=== PATIENT | male | born 1990 | race Native Hawaiian/Other Pacific Islander ===

== ENCOUNTER 2017-06-23 00:59 | Emergency (ER) | payer OTHER ==
[~2017-06-23] VITALS: Ht 177.8 cm; Wt 100.0 kg
[2017-06-23 01:01] VITALS: BP 130/79; PULSE 75; RESP 16; TEMP 98.4; O2SAT 96
[2017-06-23] MEDS ORDERED: PRED-503 PO ×2 (01:24→01:54)
[2017-06-23] MEDS ORDERED: ALLE12TA2 PO ×2 (01:24→01:54)
[2017-06-23] MEDS ORDERED: ALBU6.7H INH ×2 (01:24→01:54)
--- NOTE | 2017-06-23 01:29 | PD ---
HPI Chief Complaint: Allergic/Adverse Reaction Time Seen by Provider: 01:25 Travel History International Travel<30 days: No Contact w/Intl Traveler<30days: No Traveled to known affect area: No History of Present Illness HPI 26-year-old male presents emergency Department with complaints of runny nose, sore throat, coughing, sneezing, Gen. malaise. He states that he is having this on and off now for weeks to months. It has been worse this past week after playing with a cat. He also states that he has difficulty breathing at night and sleeping. He has had videotapes of him stopping breathing and snoring loudly. The patient was told the past that he needs a sleep study. He states that he does not like doctors and has not had this done. Patient denies any fever or chills. No ear pain, chest pain, nausea, vomiting, abdominal pain or urinary symptoms. PFSH Past Medical History Narrative Medical Seasonal allergies, Asthma Tetanus Vaccination: < 5 Years Past Surgical History Surgical History: No Previous Surgery Social History Alcohol Use: No Tobacco Use: No Allergies-Medications (Allergen,Severity, Reaction): Coded Allergies: No Known Allergies (Unverified , 06/23/17) Reported Meds & Prescriptions Reported Meds & Active Scripts Active Kristal-D 12 Hour Allergy (Fexofenadine-Pseudoephedrine ER 12 HR) 60-120 Mg Ellen 1 Tab PO BID Proventil Hfa 6.7 GM Inh (Albuterol Sulfate) 90 Mcg/Act Aer 2 Puff INH Q6H PRN Deltasone (Prednisone) 20 Mg Tab 20 Mg PO TID Review of Systems Except as stated in HPI: all other systems reviewed are Neg Physical Exam Narrative GENERAL: Well-developed, well-nourished in no acute distress. Nontoxic appearing. HEAD: Normocephalic, atraumatic. EYES: Pupils equal round and reactive. Extraocular motions intact. No scleral icterus. No injection or drainage. ENT: TMs clear without erythema. The external auditory canals clear. Nose: clear discharge with slight edema . Posterior pharynx is pink and moist. No tonsillar edema or exudate. Uvula midline. Airway patent. NECK: Trachea midline.Supple, nontender, moves head freely. No central bony tenderness or spasm. CARDIOVASCULAR: Regular rate and rhythm without murmurs, gallops, or rubs. RESPIRATORY: Few expiratory wheezes. No Rales or rhonchi. GASTROINTESTINAL: Abdomen soft, non-tender, nondistended. No hepato-splenomegaly , or palpable masses. No guarding. EXTREMITIES: No clubbing, cyanosis, or edema. No joint tenderness, effusion, or edema noted. BACK: Nontender without deformity or crepitance. No flank tenderness. Data Data Last Documented VS Vital Signs Date Time Temp Pulse Resp B/P Pulse Ox O2 Delivery O2 Flow Rate FiO2 06/23/17 01:01 98.4 75 16 130/79 96 Room Air Orders Prednisone (Deltasone) (06/23/17 01:30) Diphenhydramine (Benadryl) (06/23/17 01:30) MDM Medical Decision Making Medical Screen Exam Complete: Yes Emergency Medical Condition: Yes Medical Record Reviewed: Yes Differential Diagnosis MDM: High Differential diagnoses: Pneumonia, bronchitis, URI, asthma, RAD, sleep apnea Narrative Course The patient is given Benadryl 50 mg by mouth and prednisone 60 mg by mouth. The patient will be treated for exacerbation of his asthma and seasonal allergies. I suspect there is a component of sleep apnea and I have advised the patient to get a sleep study. Diagnosis Primary Impression: Asthma exacerbation Additional Impression: Seasonal allergies Qualified Code: J30.2 - Acute seasonal allergic rhinitis, unspecified trigger Patient Instructions: General Instructions Additional Instructions: Rest. Increase fluids. Tylenol and Advil. Kristal-D, prednisone, and albuterol. Followup with your Dr. in one week. Need to get a sleep study. Return to the ER for any problems. Med/Other Pt SpecificInfo: Prescription(s) given Scripts Fexofenadine-Pseudoephedrine ER 12 HR (Kristal-D 12 Hour Allergy)60-120 Mg Taber1 Tab PO BID #20 TAB Ref 0 Prov:Sarahi Mcclellan MD 06/23/17 Albuterol 6.7 GM Inh (Proventil Hfa 6.7 GM Inh)90 Mcg/Act Aer2 Puff INH Q6H PRN (SHORTNESS OF BREATH) #1 INHALER Prov:Sarahi Mcclellan MD 06/23/17 Prednisone (Deltasone)20 Mg Tab20 Mg PO TID #15 TAB Prov:Sarahi Mcclellan MD 06/23/17 Disposition: 01 DISCHARGE HOME Condition: Stable Hung Serna Jun 23, 2017 01:29
[2017-06-23] MEDS ORDERED: diphenhydrAMINE HCL 50 MG CAP PO ONE (01:30)
[2017-06-23] MEDS ORDERED: predniSONE 20 MG TAB PO ONE (01:30)
== END 2017-06-23 02:19 | disposition home or self-care (01) ==
LOC: NEPK 00:59
DX: J45.901 Unspecified asthma with (acute) exacerbation (principal)
CPT/HCPCS: 99284; J7512; Q0163